=== PATIENT | female | born 1980 | race Caucasian/White ===

== ENCOUNTER → 2016-12-18 | Outpatient (CLI) | payer MEDICARE, OTHER ==
[~2016-12-18] MED LIST: BACT2OIN TOPICAL; CODCAP; ESCI20TA PO; GLUCTAB6; IBUP400T20 PO; LESSTAB PO; LEVO-33 PO; LEVO.1 PO; LORA10TA7 PO; MUPI2%T TOPICAL; ZIPR1CAP8 PO
[2016-12-18 11:19] LABS: MEAN CELL VOLUME 101.5 FL (80.0-100.0); MEAN CORPUSCULAR HGB CONC 34.5 % (32.0-36.0); PLATELET COUNT 151 TH/MM3 (150-450); RED BLOOD COUNT 4.53 MIL/MM3 (4.00-5.30); REVIEW FLAG FINAL; WHITE BLOOD COUNT 5.9 TH/MM3 (4.0-11.0)
[2016-12-18 11:56] LABS: BICARBONATE 28.2 MEQ/L (21.0-32.0); HDL CHOLESTEROL 41.8 MG/DL (40.0-60.0); POTASSIUM 4.4 MEQ/L (3.5-5.1)
== END ==
LOC: CLAB 10:49
PROVIDERS: ATTEND Family Medicine
DX: E03.9 Hypothyroidism, unspecified (principal); Q65.89 Other specified congenital deformities of hip; D45 Polycythemia vera; R45.89 Other symptoms and signs involving emotional state; E66.9 Obesity, unspecified
CPT/HCPCS: 36415; 80048; 80061; 84443; 85027

== ENCOUNTER → 2017-12-04 | Outpatient (CLI) | payer MEDICARE, OTHER ==
[~2017-12-04] MED LIST changes: -BACT2OIN TOPICAL; -LESSTAB PO; -LORA10TA7 PO
[2017-12-04 10:43] LABS: HEMOGLOBIN 16.6 GM/DL (11.6-15.3); MEAN CELL VOLUME 102.8 FL (80.0-100.0); MEAN CORPUSCULAR HEMOGLOBIN 34.9 PG (27.0-34.0); MEAN PLATELET VOLUME 8.8 FL (7.0-11.0); PLATELET COUNT 176 TH/MM3 (150-450); RED BLOOD COUNT 4.77 MIL/MM3 (4.00-5.30); RED CELL DISTRIBUTION WIDTH 13.4 % (11.6-17.2); WHITE BLOOD COUNT 5.2 TH/MM3 (4.0-11.0)
[2017-12-04 11:05] LABS: ALT (GPT) 43 U/L (10-53); CHOLESTEROL 138 MG/DL (120-200); TRIGLYCERIDES 112 MG/DL (42-150)
[2017-12-04 11:14] LABS: ALKALINE PHOSPHATASE 56 U/L (45-117); CHOLESTEROL/ HDL RATIO 3.44 RATIO; HDL CHOLESTEROL 40.1 MG/DL (40.0-60.0); LDL CHOLESTEROL 76 MG/DL (0-99); TOTAL BILIRUBIN ADULT 0.5 MG/DL (0.2-1.0); TOTAL PROTEIN 7.3 GM/DL (6.4-8.2)
[2017-12-04 11:23] LABS: ALBUMIN 2.7 GM/DL (3.4-5.0); BICARBONATE 27.1 MEQ/L (21.0-32.0); BLOOD UREA NITROGEN 16 MG/DL (7-18); CALCIUM 8.5 MG/DL (8.5-10.1); CHLORIDE 105 MEQ/L (98-107); CREATININE 0.99 MG/DL (0.50-1.00); GLOMERULAR FILTRATION RATE 63 ML/MIN (>89); GLUCOSE,FASTING 79 MG/DL (74-99); SODIUM (NA) 139 MEQ/L (136-145)
[2017-12-04 11:30] LABS: AST (GOT) 67 U/L (15-37)
[2017-12-04 17:14] LABS: HEMOGLOBIN A1C 4.2 % (4.3-6.0)
== END ==
LOC: CLAB 10:02
PROVIDERS: ATTEND Family Medicine
DX: Q90.9 Down syndrome, unspecified (principal); E03.9 Hypothyroidism, unspecified; E66.9 Obesity, unspecified
CPT/HCPCS: 36415; 80053; 80061; 83036; 84443; 85027